=== PATIENT | male | born 1990 ===

== ENCOUNTER 2020-11-14 16:58 | Emergency (ER) | payer SELFPAY ==
[2020-11-14 17:21] VITALS: BP 124/55
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
== END 2020-11-14 17:52 | disposition home or self-care (01) ==
LOC: ED 16:58
DX: S39.012A Strain of muscle, fascia and tendon of lower back, initial encounter (principal); J45.909 Unspecified asthma, uncomplicated; Z79.899 Other long term (current) drug therapy; X58.XXXA Exposure to other specified factors, initial encounter; Y93.89 Activity, other specified; Y92.89 Other specified places as the place of occurrence of the external cause; Y99.8 Other external cause status
CPT/HCPCS: 99281

== ENCOUNTER 2021-10-25 12:13 | Emergency (ER) | payer SELFPAY ==
[2021-10-25] MEDS ORDERED: KETOROLAC 60 MG/2 ML INJ IM ONE (14:02)
[2021-10-25] MEDS ORDERED: CYCLOBENZAPRINE 10 MG TAB PO ONE (14:02)
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
[2021-10-25 14:57] VITALS: BP 137/79
== END 2021-10-25 14:56 | disposition home or self-care (01) ==
LOC: ED 12:13
DX: S39.012A Strain of muscle, fascia and tendon of lower back, initial encounter (principal); J45.909 Unspecified asthma, uncomplicated; Z88.0 Allergy status to penicillin; X58.XXXA Exposure to other specified factors, initial encounter; Y93.89 Activity, other specified; Y92.89 Other specified places as the place of occurrence of the external cause; Y99.8 Other external cause status
CPT/HCPCS: 96372; 99282; J1885